=== PATIENT | male | born 1940 | race Caucasian/White ===

== ENCOUNTER 2017-03-10 15:53 | Inpatient (IN) ==
[2017-03-10] MEDS ORDERED: ASPIRIN 325 MG TABLET PO STA (16:10)
[2017-03-10] MEDS ORDERED: METOPROLOL TARTRATE 5 MG/5 ML VIAL IV STA (16:10)
[2017-03-10] MEDS ORDERED: NITROGLYCERIN 2% OINT 1 INCH/GM PACK TOP STA (16:10)
--- NOTE | 2017-03-10 16:13 | EKG Report ---
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
[2017-03-10] MEDS: NITROGLYCERIN SL 0.4 MG TABLET SL PRN ×2 (16:30→16:38)
[2017-03-10 16:41] LABS: Basophils # 0.1 10*3/uL (0.0-0.2); Basophils % 0.8 % (0.0-0.8); Eosinophils # 0.2 10*3/uL (0.0-0.87); Eosinophils % 3.2 % (0.00-10.9); Hematocrit 40.8 VOL% (42.0-52.0); Hemoglobin 14.1 GM/DL (14.0-18.0); Immature Granulocytes % 4.4 %; Immature Granulocytes Absolute 0.29 #; Lymphocytes # 2.1 10*3/uL (1.4-4.0); Lymphocytes % 31.2 % (21.2-54.2); Mean Corpuscular HGB Conc 34.6 GM/DL (32-36); Mean Corpuscular Hemoglobin 30 PG (27-34); Mean Corpuscular Volume 86.3 FL (87-102); Mean Platelet Volume 8.7 FL (9.6-12.0); Monocytes # 0.7 10*3/uL (0.11-0.8); Monocytes % 10.9 % (1.7-12.7); Neutrophils # 3.3 10*3/uL (1.4-7.4); Neutrophils % 49.5 % (38.7-73.9); Platelet Count 223 T/CUMM (130-400); Red Blood Count 4.73 MC/CUMM (3.8-5.5); Red Cell Distribution Width 13.8 % (9.3-17.3); White Blood Count 6.6 T/CUMM (4-12)
[2017-03-10] MEDS ORDERED: METOPROLOL TARTRATE 5 MG/5 ML VIAL IV ONE (16:55)
[2017-03-10] MEDS ORDERED: NITROGLYCERIN 2% OINT 1 INCH/GM PACK TOP ONE (16:55)
[2017-03-10] MEDS ORDERED: ASPIRIN 325 MG TABLET ONE (16:55)
--- NOTE | 2017-03-10 17:05 | EKG Report ---
Stationary ECG Study [facility] ER Test Date: 03/10/2017 5:03 PM Pat Name: REGAN ALARCON Department: Room: Gender: M Judge Clerk: : 1940 Requested by: Domingo Kraft Order Number: [id number] Reading MD: ALYX PINZON Intervals [place] Rate: 65 P: 26 MN: 180 QRS: -57 QRSD: 98 T: -24 QT: 397 QTc: 409 Interpretive Statements SINUS RHYTHM S1-S2-S3 PATTERN, CONSISTENT WITH PULMONARY DISEASE INCOMPLETE RIGHT BUNDLE BRANCH BLOCK LEFT ANTERIOR FASCICULAR BLOCK Electronically Signed On 03-10-17 17:07:11 CDT by ALYX PINZON [email or web address]
[2017-03-10 17:07] LABS: Calcium 8.5 MG/DL (8.5-10.1); Osmolality,Calculated 275.8 MOS/KG (273-304); Potassium 3.7 MMOL/L (3.5-5.1)
[2017-03-10] MEDS ORDERED: ENOXAPARIN 80 MG/0.8 ML SYRINGE SUBCUT STA (17:18)
--- NOTE | 2017-03-10 17:25 | XRay Report ---
History: Chest pain Date: 03/10/2017 Study: Chest x-ray AP portable Comparison exam: January 06, 2017 The cardiomediastinal silhouette and pulmonary vasculature are unremarkable. The lungs and pleural spaces are generally clear. There is mild thoracic spondylosis. Impression: No acute cardiopulmonary process. No significant interval change PROCEDURE INTERPRETED AT [facility] Final Report Signed by: Dr. Isabelle Jimenez
[2017-03-10] MEDS ORDERED: POTASSIUM CHLORIDE 20 MEQ TABLET PO PRN (17:35)
[2017-03-10] MEDS ORDERED: MORPHINE 2 MG/1 ML SYRINGE IV PRN (17:35)
[2017-03-10] MEDS ORDERED: MAGNESIUM SULF RIDER 2 GM in PREMIX 1 EACH IV PRN (17:35)
[2017-03-10] MEDS ORDERED: ONDANSETRON 4 MG/2 ML VIAL IV PRN (17:35)
--- NOTE | 2017-03-10 17:35 | Emergency Department Note ---
Riaz Head Brittany, am scribing for, and in the presence of, Cristhian Hernandez MD 16:13. David Head Doug C, MD, personally performed the services described in this documentation, ascribed by Anai Mello in my presence, and it is both accurate and complete [id number] . Arrival - Arrival Chief Complaint: Chest Pain Stated Complaint: CHEST PAINS ED Nursing Triage Note: C/o dull, left side chest pain-onset yesterday. Denies SOB, N/V, or diaphoresis. Patient had stent placed on 01/07/17. Mode of Arrival: Wheelchair Limitations: No Limitations Source: Patient, RN Notes Reviewed Time Seen by Provider: 03/10/17 16:10 - History of Present Illness HPI Narrative: Patient comes to emergency room complaining of substernal chest pain that began yesterday around noon. Patient states the pain is substernal heaviness and he has no associated nausea, vomiting, shortness of breath or diaphoresis. Patient states she has not noted any radiation of this discomfort. Patient has a history of coronary artery disease and had stenting performed in December of this year. Patient states his pain is a little different in location from his prior episode but the character of the pain is the same. He did not take a nitroglycerin at home for his discomfort. Patient states he has not stopped his blood thinner. Onset (ago): day(s) (1) Consistency: constant Severity: moderate Severity scale (1-10): 6 Quality: dull (pt describes this pain as a dull pressure) Allergies/Adverse Reactions: Allergies Allergy/AdvReac Type Severity Reaction Status Date / Time No Known Allergies Allergy Verified 01/06/17 20:02 Home Medications: Home Medications Medication Instructions Recorded Confirmed Type Terazosin [Hytrin] 5 mg PO BEDTIME 04/28/15 03/10/17 History Aspirin EC Tab 1 tablet PO QAM 05/15/15 03/10/17 History Cilostazol [Pletal] 50 mg PO BID #60 tablet 01/10/17 03/10/17 Rx Ticagrelor [Brilinta] 90 mg PO BID #60 tablet 01/10/17 03/10/17 Rx Carvedilol [Coreg] 3.25 mg PO BID 03/10/17 03/10/17 History Rosuvastatin [Crestor] 10 mg PO BEDTIME 03/10/17 03/10/17 History amLODIPine [Norvasc] 5 mg PO DAILY 03/10/17 03/10/17 History Review of System - Review of System 12 point system: reviewed and no additional remarkable complaints except as stated - Review of System Constitutional: Absent: chills, diaphoresis, fever Eyes: Absent: vision change Head/Ears/Nose/Throat: Absent: nasal drainage, sore throat Respiratory: Absent: respiratory distress Cardiovascular: Present: chest pain Gastrointestinal: Absent: abdominal pain, nausea, vomiting, diarrhea, constipation Genitourinary male: Absent: urgency, dysuria, frequency Musculoskeletal: Absent: arm pain, back pain, leg pain, neck pain Skin: Absent: rash Neurological: Absent: headache Psychiatric: Absent: anxiety, depression Hematological/Lymphatic: Absent: easy bleeding, easy bruising Medical,Surgical,& Family Hx - Medical History Cardio: History of: CAD, Hypertension Psychological: Comment Only: Anxiety Disorders (takes xanax prn for anxiety) HEENT: History of: Eye Problem (cataract surgery detached retina) Endocrine: History of: Diabetes Mellitus (IDDM), Diabetes Mellitus (NIDDM), Dyslipidemia No history of: Thyroid Disorder, Endocrine Cancer, Endocrine Problems Hematology: No history of: Blood Transfusion Reaction (no had a blood transfusion) Other: No history of: Anesthesia Reactions - Surgical History Cardiac Surgeries: Sugical HX of: Cardiac Catheterization Patient Denies: Femoral-Popliteal Bypass Graft, Cardiac Surgery, Carotid Endarterectomy, Internal Defibrillator, Vascular Access Devices Thoracic Surgeries: Patient denies;: Organ Transplant HEENT Surgeries: Surgical HX of: Eye Surgery Patient denies: Carotid Endarterectomy Abdominal Surgeries: Patient denies: Abdominal Surgery, Splenectomy - Family History Family History: Reports;: Family Cancer (mother (colon cancr)), Family Diabetes (mother), Family Hypertension (mother) - Social History Smoking Status: Former smoker Frequency of Alcohol Use: None Type of Drug Use: None Exam Vital Signs: Vital Signs Temperature 97.8 F 03/10/17 17:24 Pulse Rate 74 03/10/17 17:24 Respiratory Rate 18 03/10/17 17:24 Blood Pressure 162/82 03/10/17 17:24 O2 Sat by Pulse Oximetry 97 03/10/17 17:00 - General General appearance: alert, in no apparent distress - Head Head exam: Present: normocephalic - Eye Eye exam: Present: PERRL, EOMI - ENT ENT exam: Present: normal exam, normal oropharynx - Neck Neck exam: Present: normal inspection, full ROM, trachea midline - Chest Chest inspection: Present: normal inspection, symmetric chest wall rise - Respiratory Respiratory exam: Present: normal lung sounds bilaterally - Cardiovascular Cardiovascular exam: Present: regular rate, normal rhythm, normal heart sounds - Abdominal Exam Abdominal exam: Present: soft, normal bowel sounds - Extremities Exam Extremities exam: Present: normal inspection - Back Exam Back exam: Present: normal inspection - Neurological Exam Neurological exam: Present: alert, oriented X3, CN II-XII intact. Absent: motor sensory deficit - Psychiatric Psychiatric exam: Present: normal affect - Skin Skin exam: Present: warm, dry Course Course Narrative: Patient's clinical presentation, history, laboratory and radiographic findings as well as left cardiographic findings were discussed with Dr. Singh. The patient will be admitted to telemetry to his services. Patient's initial cardiac isoenzymes were negative. Results - Labs CBC & BMP: 03/10/17 16:37 03/10/17 16:37 Lab Results: I have reviewed the patients labs Labs: Laboratory Tests 03/10/17 16:37 WBC 6.6 RBC 4.73 Hgb 14.1 Hct 40.8 L MCV 86.3 L MCH 30 MCHC 34.6 RDW 13.8 Plt Count 223 MPV 8.7 L Neut % (Auto) 49.5 Lymph % (Auto) 31.2 [place] % (Auto) 10.9 Eos % (Auto) 3.2 Baso % (Auto) 0.8 Neut # (Auto) 3.3 Lymph # (Auto) 2.1 [place] # (Auto) 0.7 Eos # (Auto) 0.2 Baso # (Auto) 0.1 Immature Gran % 4.4 Nucleated RBC % 0.0 Immature Gran # 0.29 Nucleated RBCs # 0.00 Laboratory Tests 03/10/17 16:37 Sodium 137 Potassium 3.7 Chloride 104 Carbon Dioxide 26 Anion Gap 10.7 BUN 14 Creatinine 1.20 GFR Calculation 62 BUN/Creatinine Ratio 11.00 Glucose 138 H Calculated Osmolality 275.8 Calcium 8.5 - EKG EKG results: interpreted by ERMD, sinus rhythm (77 bpm), no acute changes - Impressions After patient's pain subsided repeat EKG revealed have inverted T waves in 3 and aVF. There is still no ST elevation or depression - Diagnostic Findings Procedure: Chest x-ray: report reviewed by me (Normal) Disposition Clinical Impression: Unstable angina Case discussed with: patient, patient's family Disposition: Still a Patient Condition: Guarded Time of Disposition: 17:35
--- NOTE | 2017-03-10 18:25 | Cardiology History & Physical ---
Assessment and Plan (1) Unstable angina Status: Acute Assessment and plan: 76-year-old male, with multivessel CAD, status post inferior STEMI 2 months ago , status post RCA/PL PCI. Hypertension, hyperlipidemia, type 2 diabetes mellitus. Admitted with inferior EKG changes, chest pain, so far, negative cardiac biomarkers, hemodynamically stable no chest pain severe for nitroglycerin. -The presentation is suspicious for ACS/UA. On his prior admission, after initial presentation, he developed STEMI, despite antiplatelets/ anticoagulation. Presentation would be a bit late for Roshni's. -We will observe him closely. -Continue aspirin, Brilinta, full anticoagulation with Lovenox. -Nitroglycerin for chest pain. -Beta-olivia, statin. -He is currently pain-free. N.p.o. after midnight. If there is evidence of myocardial injury, we will need to proceed with catheterization Current Visit: Yes (2) Suspected sleep apnea Status: Acute Current Visit: No (3) TIA (transient ischemic attack) Status: Acute Current Visit: No (4) Hypertension Status: Chronic Current Visit: No (5) Overweight Status: Chronic Current Visit: No History of Present Illness Chief complaint: CP History of present illness: Mr. Guevara is a 76 year old male, pt of dr. Connolly. H/o HTN, HL, T2DM. On 12/2016, he was admitted with CP, which in a few hours transformed into an inferior STEMI and he underwent urgent LHC: Subtotal stenosis of the proximal right coronary artery-99%, VLADISLAV grade II flow 90% narrowing of the proximal PDA of the right coronary 80% narrowing of the proximal portion of the diagonal of the LAD 95% narrowing of a small post lateral branch of the circumflex-less than 2 mm in diameter Status post successful stenting of the proximal right [id number] stent, 3.0 x 18 Zions Alpine, predilated with a 2.5 x 15 mm NC apex Status post successful angioplasty of the PDA of the right coronary-same vessel- 2.0 x 15 mm NC apex Normal global/regional left ventricular systolic function, LVEF greater than 55% Moderately severe elevation of LVEDP, 29 mmHg Post catheterization patient was transferred to the CCU in stable condition. He did well post catheterization with the exception of having an episode left shoulder pain while on telemetry yesterday which he was concerned felt similar to S/S he experienced prior to stent placement. Twelve-lead EKG obtained and it is without acute ST segment change or other signs of ischemia. At that time, it was decided to observe patient on telemetry for 1 more day. Cardiac markers were ordered at that time. These were trending down as expected. Imdur was added to his medication regimen and he was encouraged to ambulate in the hallway as tolerated to assess for recurrent left shoulder pain or other discomfort upon exertion. The pain then resolved and he was discharged. He followed up with Dr. Connolly, taking his medications as prescribed. Earlier today, he developed sudden onset left-sided sharp chest pain/shoulder, without radiation, started at rest and was persistent. He did not find anything that made it better, however, resolved with nitroglycerin in the emergency room. This pain was not similar to his pain before the NE, more similar to one he experienced after it. Initial EKG was unremarkable, repeat EKG showed inferior T-wave changes. Initial troponin is negative. He is currently chest pain-free. He did not have any shortness of breath leg swelling GI discomfort black or bloody stools. He is currently feeling fine. Blood pressure normal Home Medications Medication Instructions Recorded Confirmed Type Terazosin [Hytrin] 5 mg PO BEDTIME 04/28/15 03/10/17 History Aspirin EC Tab 1 tablet PO QAM 05/15/15 03/10/17 History Cilostazol [Pletal] 50 mg PO BID #60 tablet 01/10/17 03/10/17 Rx Ticagrelor [Brilinta] 90 mg PO BID #60 tablet 01/10/17 03/10/17 Rx Carvedilol [Coreg] 3.25 mg PO BID 03/10/17 03/10/17 History Rosuvastatin [Crestor] 10 mg PO BEDTIME 03/10/17 03/10/17 History amLODIPine [Norvasc] 5 mg PO DAILY 03/10/17 03/10/17 History Allergies Allergy/AdvReac Type Severity Reaction Status Date / Time No Known Allergies Allergy Verified 01/06/17 20:02 12 point system: reviewed and no additional remarkable complaints except as stated Medical,Surgical,& Family Hx - Medical History Cardio: History of: CAD, Hypertension Psychological: Comment Only: Anxiety Disorders (takes xanax prn for anxiety) HEENT: History of: Eye Problem (cataract surgery detached retina) Endocrine: History of: Diabetes Mellitus (IDDM), Diabetes Mellitus (NIDDM), Dyslipidemia No history of: Thyroid Disorder, Endocrine Cancer, Endocrine Problems Hematology: No history of: Blood Transfusion Reaction (no had a blood transfusion) Other: No history of: Anesthesia Reactions - Surgical History Cardiac Surgeries: Sugical HX of: Cardiac Catheterization Patient Denies: Femoral-Popliteal Bypass Graft, Cardiac Surgery, Carotid Endarterectomy, Internal Defibrillator, Vascular Access Devices Thoracic Surgeries: Patient denies;: Organ Transplant HEENT Surgeries: Surgical HX of: Eye Surgery Patient denies: Carotid Endarterectomy Abdominal Surgeries: Patient denies: Abdominal Surgery, Splenectomy - Family History Family History: Reports;: Family Cancer (mother (colon cancr)), Family Diabetes (mother), Family Hypertension (mother) - Social History Smoking Status: Former smoker Frequency of Alcohol Use: None Type of Drug Use: None Cardiology Physical Exam - Constitutional Vitals: Vital Signs Temp Pulse Resp BP Pulse Ox 97.8 F 64 20 118/69 97 03/10/17 17:24 03/10/17 18:00 03/10/17 18:00 03/10/17 18:00 03/10/17 18:00 Intake and Output 03/10/17 03/10/17 03/10/17 07:59 15:59 23:59 Other: Weight 77.111 kg Patient Weight 03/10/17 23:59 Weight 77.111 kg General appearance: normal weight, over weight - Head Head exam: Present: normal inspection - Eye Eye exam: Absent: conjunctival injection Pupils: Absent: dilated - ENT ENT exam: Present: normal exam - Neck Neck exam: Present: normal inspection - Respiratory Respiratory exam: Present: clear to auscultation bilaterally. Absent: chest wall tenderness, prolonged expiratory phase - Cardiovascular Cardiovascular exam: Present: regular rate and rhythm - GI/Abdominal GI/Abdominal exam: Present: normal bowel sounds - Extremities Exam Extremities exam: Present: normal inspection, normal capillary refill. Absent: edema - Back Exam Back exam: Present: normal inspection - Neurological Exam Neurological exam: Present: alert, oriented X3 - Psychiatric Psychiatric exam: Present: normal affect, normal mood - Skin Skin exam: Present: normal color, warm. Absent: cyanosis Result/EKG - Labs CBC & BMP: 03/10/17 16:37 03/10/17 16:37 Lab Results: I have reviewed the past 24 hour labs Labs: Laboratory Results - last 24 hr 03/10/17 03/10/17 03/10/17 16:37 16:37 16:37 WBC 6.6 RBC 4.73 Hgb 14.1 Hct 40.8 L MCV 86.3 L MCH 30 MCHC 34.6 RDW 13.8 Plt Count 223 MPV 8.7 L Neut % (Auto) 49.5 Lymph % (Auto) 31.2 [place] % (Auto) 10.9 Eos % (Auto) 3.2 Baso % (Auto) 0.8 Neut # (Auto) 3.3 Lymph # (Auto) 2.1 [place] # (Auto) 0.7 Eos # (Auto) 0.2 Baso # (Auto) 0.1 Immature Gran % 4.4 Nucleated RBC % 0.0 Immature Gran # 0.29 Nucleated RBCs # 0.00 Sodium 137 Potassium 3.7 Chloride 104 Carbon Dioxide 26 Anion Gap 10.7 BUN 14 Creatinine 1.20 GFR Calculation 62 BUN/Creatinine Ratio 11.00 Glucose 138 H Calculated Osmolality 275.8 Calcium 8.5 Troponin I < 0.015 - EKG EKG results: interpreted by me
[2017-03-10] MEDS: ROSUVASTATIN 20 MG TABLET PO SCH (20:52)
[2017-03-10] MEDS: CARVEDILOL 6.25 MG TABLET PO SCH (20:52)
[2017-03-10] MEDS: TICAGRELOR 90 MG TABLET PO SCH (20:52)
[2017-03-10] MEDS: SODIUM CHLORIDE 0.45% 1,000 ML IV SCH (20:52)
[2017-03-10] MEDS: CILOSTAZOL 50 MG TABLET PO SCH (20:52)
[2017-03-10] MEDS: TERAZOSIN 5 MG CAPSULE PO SCH (20:52)
[2017-03-10] MEDS ORDERED: ZALEPLON 5 MG CAPSULE PO PRN (21:00)
[2017-03-11 06:37] LABS: Calcium 8.4 MG/DL (8.5-10.1); Osmolality,Calculated 275.5 MOS/KG (273-304); Potassium 4.5 MMOL/L (3.5-5.1)
[2017-03-11 06:54] LABS: Risk Ratio 2.12; VLDL CHOLESTEROL 19.6 MG/DL
--- NOTE | 2017-03-11 07:10 | EKG Report ---
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
--- NOTE | 2017-03-11 07:11 | EKG Report ---
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
[2017-03-11] MEDS ORDERED: ENOXAPARIN 80 MG/0.8 ML SYRINGE SUBCUT SCH (09:00)
[2017-03-11] MEDS ORDERED: ASPIRIN EC 325 MG TABLET PO SCH (09:00)
[2017-03-11] MEDS: SODIUM CHLORIDE 0.45% 1,000 ML IV SCH ×2 (09:05→21:25)
[2017-03-11] MEDS: ASPIRIN EC 81 MG TABLET PO SCH (09:06)
[2017-03-11] MEDS: CILOSTAZOL 50 MG TABLET PO SCH ×2 (09:06→21:23)
[2017-03-11] MEDS: CARVEDILOL 6.25 MG TABLET PO SCH ×2 (09:06→21:23)
[2017-03-11] MEDS: TICAGRELOR 90 MG TABLET PO SCH ×2 (09:06→21:23)
[2017-03-11] MEDS: amLODIPine 5 MG TABLET PO SCH (09:06)
[2017-03-11] MEDS: PANTOPRAZOLE 40 MG TABLET PO SCH (09:06)
[2017-03-11] MEDS: NITROGLYCERIN SL 0.4 MG TABLET SL PRN ×3 (09:07→09:29)
--- NOTE | 2017-03-11 09:08 | EKG Report ---
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
[2017-03-11] MEDS ORDERED: ALUM/MAG/SIMETH/LIDO VISC 1:1 30 ML BOTTLE PO ONE (09:15)
--- NOTE | 2017-03-11 09:36 | Cardiology Progress Note ---
<Bella Rees Konstantin - Last Filed: 03/11/17 09:25> Assessment and Plan - Time spent with patient Time spent with patient: Less than 30 minutes (1) Unstable angina Status: Acute Assessment and plan: See plan of care listed below Current Visit: Yes (2) CAD (coronary artery disease) Status: Chronic Assessment and plan: See plan of care listed below Current Visit: Yes (3) Hyperlipidemia Status: Chronic Assessment and plan: See plan of care listed below Current Visit: Yes (4) Hypertension Status: Chronic Assessment and plan: See plan of care listed below Current Visit: No (5) Suspected sleep apnea Status: Chronic Assessment and plan: See plan of care listed below Current Visit: No Cardiology - PN: Subj Interval history: 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 SOLO Mr. Guevara is a 76 year old male with a history of multivessel CAD , status post inferior STEMI 2 months ago, status post RCA/PL PCI. He also has a history of hypertension, hyperlipidemia. He presented to the hospital with complaints of chest pain, suspicious for ACS/UA. On initial presentation, he described pain of sudden onset left-sided sharp chest pain without radiation, started at rest and was persistent. It resolved with nitroglycerin in the emergency room. This pain was not similar to his pain before the NM, more similar to one he experienced after it. He was also noted to have inferior EKG changes. He has had 3 sets of negative cardiac biomarkers. He has been hemodynamically stable and has had no pain since admission until this morning. I was notified approximately 15-20 minutes ago of Mr. Guevara developing chest pain. Thus far, he's had 2 sublingual nitroglycerin and his pain has improved. An EKG was performed and is grossly unchanged from yesterday's. We have continued his aspirin, brilinta, and full anticoagulation with Lovenox. He describes this pain as being a "dull ache" in his left chest. ASSESSMENT/PLAN: 1. UNSTABLE ANGINA - On his prior admission after initial presentation, he developed STEMI despite antiplatelets/anticoagulation. Continue NTG for chest pain. Will further discuss with Dr. Mark and await his recommendations. 2. CAD - He is s/p stenting of the proximal RCA with 3.0 x 18mm Xience [place] MAXIMINO and s/p angioplasty of the PDA of the RCA with 2.0 x 15mm NC [employer] [place]. 3. HYPERTENSION - Has been well controlled but is currently hypertensive with chest pain. Improving with sublingual nitroglycerin. Will continue to monitor and adjust medications accordingly. 4. HYPERLIPIDEMIA - Continue lipid lowering agent. Triglycerides 98, cholesterol 89, LDL 36, HDL 42. 5. SUSPECTED SLEEP APNEA Dr. Mark to follow with further plan and addendum. Exam (Progress Note) - Constitutional Vitals: Period Temp Pulse Resp BP Sys/Juarez Pulse Ox Last 24 Hr 97.8 F-98.4 F 54-88 18-20 117-162/67-84 95-98 Exam: General: Present: Appears Well, No Apparent Distress. Pleasant and cooperative. Appears comfortable. HEENT: Present: PERRL, Normocephaly, atraumatic. Mucus Membranes Moist. No jaundice noted. Conjunctiva moist and clear, sclerae anicteric Neck: Present: Supple Neck, Midline Trachea, No Masses, No Bruit, No tenderness Cardiac: Present: Regular Rate and Rhythm, No Murmur Lungs: Present: Clear to auscultation bilaterally, no wheeze, rhonchi, rales. Neuro: Present: Awake, alert, and oriented x3. Moves all extremities well without hemiparesis or paralysis. Grossly Intact. Absent: Resting Tremor, Essential Tremor Abdomen: Present: Soft, Active Bowel Sounds, No Masses, Non-Tender, nondistended. No abdominal bruit or thrill noted. Skin: Present: Clear. Absent: Rash, No skin breakdown. Back: Normal inspection, no vertebral tenderness. Musculoskeletal: Present: No Fluid Collection, No Pain, Normal Range of Motion Extremities: Present: Normal Gait, No Clubbing, No Cyanosis, Upper Extr. Pulses 2+, Lower Extr. Pulses 2+, No edema. Capillary refill less than 3 seconds. Result/EKG - Labs CBC & BMP: 03/10/17 16:37 03/11/17 05:29 Lab Results: I have reviewed the past 24 hour labs Labs: Laboratory Results - last 24 hr 03/10/17 03/10/17 03/10/17 16:37 16:37 16:37 WBC 6.6 RBC 4.73 Hgb 14.1 Hct 40.8 L MCV 86.3 L MCH 30 MCHC 34.6 RDW 13.8 Plt Count 223 MPV 8.7 L Neut % (Auto) 49.5 Lymph % (Auto) 31.2 [place] % (Auto) 10.9 Eos % (Auto) 3.2 Baso % (Auto) 0.8 Neut # (Auto) 3.3 Lymph # (Auto) 2.1 [place] # (Auto) 0.7 Eos # (Auto) 0.2 Baso # (Auto) 0.1 Immature Gran % 4.4 Nucleated RBC % 0.0 Immature Gran # 0.29 Nucleated RBCs # 0.00 Sodium 137 Potassium 3.7 Chloride 104 Carbon Dioxide 26 Anion Gap 10.7 BUN 14 Creatinine 1.20 GFR Calculation 62 BUN/Creatinine Ratio 11.00 Glucose 138 H Calculated Osmolality 275.8 Calcium 8.5 Troponin I < 0.015 Triglycerides Cholesterol LDL Cholesterol VLDL Cholesterol HDL Cholesterol Heart Disease Risk Ratio 03/10/17 03/10/17 03/11/17 19:48 22:12 05:29 WBC RBC Hgb Hct MCV MCH MCHC RDW Plt Count MPV Neut % (Auto) Lymph % (Auto) [place] % (Auto) Eos % (Auto) Baso % (Auto) Neut # (Auto) Lymph # (Auto) [place] # (Auto) Eos # (Auto) Baso # (Auto) Immature Gran % Nucleated RBC % Immature Gran # Nucleated RBCs # Sodium 139 Potassium 4.5 Chloride 106 Carbon Dioxide 27 Anion Gap 10.5 BUN 13 Creatinine 1.00 GFR Calculation 78 BUN/Creatinine Ratio 13.00 Glucose 82 Calculated Osmolality 275.5 Calcium 8.4 L Troponin I < 0.015 < 0.015 Triglycerides Cholesterol LDL Cholesterol VLDL Cholesterol HDL Cholesterol Heart Disease Risk Ratio 03/11/17 05:29 WBC RBC Hgb Hct MCV MCH MCHC RDW Plt Count MPV Neut % (Auto) Lymph % (Auto) [place] % (Auto) Eos % (Auto) Baso % (Auto) Neut # (Auto) Lymph # (Auto) [place] # (Auto) Eos # (Auto) Baso # (Auto) Immature Gran % Nucleated RBC % Immature Gran # Nucleated RBCs # Sodium Potassium Chloride Carbon Dioxide Anion Gap BUN Creatinine GFR Calculation BUN/Creatinine Ratio Glucose Calculated Osmolality Calcium Troponin I Triglycerides 98 Cholesterol 89 LDL Cholesterol 36.0 VLDL Cholesterol 19.6 HDL Cholesterol 42 Heart Disease Risk Ratio 2.12 - EKG EKG results: interpreted by me <Tiff Mark - Last Filed: 03/11/17 10:00> Assessment and Plan - Time spent with patient Time spent with patient: Greater than 30 minutes (Chart review examination film review documentation and orders) (1) Hypertension Status: Chronic Assessment and plan: Patient blood pressure is currently controlled. Current Visit: No Qualifiers: Hypertension type: essential hypertension Qualified Code(s): I10 - Essential (primary) hypertension (2) Unstable angina Status: Acute Assessment and plan: This chest discomfort is not clear. Certainly it may represent unstable angina he has reasons for unstable angina as described above. His pain did respond to nitroglycerin he has 2 sets of negative cardiac biomarkers and no new changes on his ECG. He certainly needs to reevaluation with left heart cath and possible PCI given his recent stent however the small vessel disease is likely best treated medically in both the LAD, diagonal and obtuse marginal.. He diagnosed clearly not amenable to PCI in the distal obtuse marginal certainly may be. All of the disease that was left at the time of his stenting small vessel disease most likely medical therapy Current Visit: Yes (3) CAD (coronary artery disease) Status: Chronic Assessment and plan: Diffuse small vessel disease as described above Current Visit: Yes (4) Hyperlipidemia Status: Chronic Current Visit: Yes Qualifiers: Hyperlipidemia type: mixed hyperlipidemia Qualified Code(s): E78.2 - Mixed hyperlipidemia Cardiology - PN: Subj Interval history: Mr. Guevara is a 68-year-old gentleman on a went PCI of the RCA by Dr. Ji in December. 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 Blu solo. The patient states that since he had his stent he has not "felt right". He an 81 mg of aspirin. The patient was found at that time to have high-grade stenosis in the mid RCA which was the culprit vessel and stented. He also had a very small diagonal had VLADISLAV I flow and high-grade ostial stenosis in a distal obtuse marginal in a codominant vessel with high-grade stenosis. There is also diffuse small vessel disease in the distal LAD. There was also moderate disease in the mid to distal left circumflex. The diagonal was extremely small less than 1 mm vessel. The distal obtuse marginal also was a very small vessel. The patient does not have ST elevation on his EKG at this time is had 2 cardiac biomarkers are negative. He states his pain has come and gone but right now he says it is a 1/10 and it is "just there." He states that the time of this to me he had left shoulder pain. He did not experience nausea vomiting or diaphoresis the episode. I have reviewed his films I discussed and interviewed the patient and discussed with his is been examined. Given the proximity of recent PCI I feel that he needs left heart catheterization however at this time I do not think it is urgent. His pain is better his blood pressure initially was high is gotten better his pain is better. I will make adjustments to his medications. Must consider acute problems with his previously deployed stent which would change things however this very well may be very small disease on the left system. I will escalate his medical therapy Exam (Progress Note) - Constitutional Vitals: Period Temp Pulse Resp BP Sys/Juarez Pulse Ox Last 24 Hr 97.8 F-98.4 F 54-88 18-20 117-162/67-84 95-98 General appearance: normal weight, other (He is currently not in any distress) - Head Head exam: Present: normal inspection - Eye Eye exam: Present: EOMI Pupils: Present: TEA - ENT ENT exam: Present: normal exam - Neck Neck exam: Present: normal inspection - Respiratory Respiratory exam: Present: clear to auscultation bilaterally - Cardiovascular Cardiovascular exam: Present: regular rate and rhythm (No gallop), other (His chest discomfort is partially reproducible with palpation.) - GI/Abdominal GI/Abdominal exam: Present: normal bowel sounds - Extremities Exam Extremities exam: Present: other (Spacing the tip of the finger on the left hand 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) - Back Exam Back exam: Present: normal inspection - Neurological Exam Neurological exam: Present: alert, oriented X3 - Psychiatric Psychiatric exam: Present: normal affect, normal mood - Skin Skin exam: Present: normal color, warm, dry Result/EKG - Labs CBC & BMP: 03/10/17 16:37 03/11/17 05:29 Labs: Laboratory Results - last 24 hr 03/10/17 03/10/17 03/10/17 16:37 16:37 16:37 WBC 6.6 RBC 4.73 Hgb 14.1 Hct 40.8 L MCV 86.3 L MCH 30 MCHC 34.6 RDW 13.8 Plt Count 223 MPV 8.7 L Neut % (Auto) 49.5 Lymph % (Auto) 31.2 [place] % (Auto) 10.9 Eos % (Auto) 3.2 Baso % (Auto) 0.8 Neut # (Auto) 3.3 Lymph # (Auto) 2.1 [place] # (Auto) 0.7 Eos # (Auto) 0.2 Baso # (Auto) 0.1 Immature Gran % 4.4 Nucleated RBC % 0.0 Immature Gran # 0.29 Nucleated RBCs # 0.00 Sodium 137 Potassium 3.7 Chloride 104 Carbon Dioxide 26 Anion Gap 10.7 BUN 14 Creatinine 1.20 GFR Calculation 62 BUN/Creatinine Ratio 11.00 Glucose 138 H Calculated Osmolality 275.8 Calcium 8.5 Troponin I < 0.015 Triglycerides Cholesterol LDL Cholesterol VLDL Cholesterol HDL Cholesterol Heart Disease Risk Ratio 03/10/17 03/10/17 03/11/17 19:48 22:12 05:29 WBC RBC Hgb Hct MCV MCH MCHC RDW Plt Count MPV Neut % (Auto) Lymph % (Auto) [place] % (Auto) Eos % (Auto) Baso % (Auto) Neut # (Auto) Lymph # (Auto) [place] # (Auto) Eos # (Auto) Baso # (Auto) Immature Gran % Nucleated RBC % Immature Gran # Nucleated RBCs # Sodium 139 Potassium 4.5 Chloride 106 Carbon Dioxide 27 Anion Gap 10.5 BUN 13 Creatinine 1.00 GFR Calculation 78 BUN/Creatinine Ratio 13.00 Glucose 82 Calculated Osmolality 275.5 Calcium 8.4 L Troponin I < 0.015 < 0.015 Triglycerides Cholesterol LDL Cholesterol VLDL Cholesterol HDL Cholesterol Heart Disease Risk Ratio 03/11/17 05:29 WBC RBC Hgb Hct MCV MCH MCHC RDW Plt Count MPV Neut % (Auto) Lymph % (Auto) [place] % (Auto) Eos % (Auto) Baso % (Auto) Neut # (Auto) Lymph # (Auto) [place] # (Auto) Eos # (Auto) Baso # (Auto) Immature Gran % Nucleated RBC % Immature Gran # Nucleated RBCs # Sodium Potassium Chloride Carbon Dioxide Anion Gap BUN Creatinine GFR Calculation BUN/Creatinine Ratio Glucose Calculated Osmolality Calcium Troponin I Triglycerides 98 Cholesterol 89 LDL Cholesterol 36.0 VLDL Cholesterol 19.6 HDL Cholesterol 42 Heart Disease Risk Ratio 2.12 - EKG EKG results: interpreted by me (Sinus rhythm at 61 bpm with T-wave inversion 3 and aVF. Has a leftward axis. Pulmonary disease pattern with incomplete right bundle branch block.)
[2017-03-11 10:01] LABS: Troponin I Only < 0.015 NG/ML (0.00-0.045)
[2017-03-11] MEDS: ISOSORBIDE MONONITRATE 30 MG TABLET PO SCH (10:36)
[2017-03-11] MEDS: TERAZOSIN 5 MG CAPSULE PO SCH (21:22)
[2017-03-11] MEDS: ROSUVASTATIN 20 MG TABLET PO SCH (21:23)
[2017-03-12 05:37] LABS: Basophils # 0.1 10*3/uL (0.0-0.2); Basophils % 0.9 % (0.0-0.8); Eosinophils # 0.3 10*3/uL (0.0-0.87); Eosinophils % 3.6 % (0.00-10.9); Hematocrit 39.5 VOL% (42.0-52.0); Hemoglobin 13.3 GM/DL (14.0-18.0); Immature Granulocytes % 2.4 %; Immature Granulocytes Absolute 0.17 #; Lymphocytes # 2.2 10*3/uL (1.4-4.0); Mean Corpuscular HGB Conc 33.7 GM/DL (32-36); Mean Corpuscular Hemoglobin 29 PG (27-34); Monocytes # 0.7 10*3/uL (0.11-0.8); Monocytes % 10.5 % (1.7-12.7); Neutrophils # 3.6 10*3/uL (1.4-7.4); Neutrophils % 51.6 % (38.7-73.9); Platelet Count 213 T/CUMM (130-400); Red Blood Count 4.54 MC/CUMM (3.8-5.5); Red Cell Distribution Width 13.7 % (9.3-17.3); White Blood Count 6.9 T/CUMM (4-12)
[2017-03-12 06:00] LABS: Calcium 8.4 MG/DL (8.5-10.1); Magnesium 2.3 MG/DL (1.8-2.4); Osmolality,Calculated 273.8 MOS/KG (273-304); Potassium 4.5 MMOL/L (3.5-5.1)
--- NOTE | 2017-03-12 06:47 | Cardiology Progress Note ---
Assessment and Plan (1) Hypertension Status: Chronic Assessment and plan: Patient blood pressure is currently controlled. Current Visit: No Qualifiers: Hypertension type: essential hypertension Qualified Code(s): I10 - Essential (primary) hypertension (2) Unstable angina Status: Acute Assessment and plan: This chest discomfort is not clear. Certainly it may represent unstable angina he has reasons for unstable angina as described above. His pain did respond to nitroglycerin he has 3 sets of negative cardiac biomarkers and no new changes on his ECG. He certainly needs to reevaluation with left heart cath and possible PCI given his recent stent however the small vessel disease is likely best treated medically in both the LAD, diagonal and obtuse marginal. I discussed with the patient again this morning. Will await heart cath. He is agreeable to proceed I answered all the questions he and his have. If no PCI today will anticipate discharge later. PCI will anticipate discharge tomorrow. Current Visit: Yes (3) CAD (coronary artery disease) Status: Chronic Assessment and plan: Diffuse small vessel disease as described above Current Visit: Yes (4) Hyperlipidemia Status: Chronic Current Visit: Yes Qualifiers: Hyperlipidemia type: mixed hyperlipidemia Qualified Code(s): E78.2 - Mixed hyperlipidemia Cardiology - PN: Subj Interval history: Mr. Guevara states that after he became pain-free yesterday when I saw him with nitroglycerin and started Philippe has not had any additional discomfort. I told him about the cath and he is ready to proceed. Patient scheduled for left heart possible by Dr. Stewart this morning. Exam (Progress Note) - Constitutional Vitals: Period Temp Pulse Resp BP Sys/Juarez Pulse Ox Last 24 Hr 97.9 F-98.7 F 64-72 16-20 130-139/73-84 94-98 General appearance: normal weight - Head Head exam: Present: normal inspection - Eye Eye exam: Present: EOMI Pupils: Present: TEA - Neck Neck exam: Present: normal inspection - Respiratory Respiratory exam: Present: clear to auscultation bilaterally - Cardiovascular Cardiovascular exam: Present: regular rate and rhythm - GI/Abdominal GI/Abdominal exam: Present: normal bowel sounds - Extremities Exam Extremities exam: Present: normal inspection - Back Exam Back exam: Present: normal inspection - Neurological Exam Neurological exam: Present: alert, oriented X3 - Psychiatric Psychiatric exam: Present: normal affect, normal mood - Skin Skin exam: Present: normal color, warm, dry Result/EKG - Labs CBC & BMP: 03/12/17 04:54 03/12/17 04:54 Labs: Laboratory Results - last 24 hr 03/11/17 03/11/17 03/12/17 05:29 09:14 04:54 WBC 6.9 RBC 4.54 Hgb 13.3 L Hct 39.5 L MCV 87.0 MCH 29 MCHC 33.7 RDW 13.7 Plt Count 213 MPV 9.0 L Neut % (Auto) 51.6 Lymph % (Auto) 31.0 [place] % (Auto) 10.5 Eos % (Auto) 3.6 Baso % (Auto) 0.9 H Neut # (Auto) 3.6 Lymph # (Auto) 2.2 [place] # (Auto) 0.7 Eos # (Auto) 0.3 Baso # (Auto) 0.1 Immature Gran % 2.4 Nucleated RBC % 0.0 Immature Gran # 0.17 Nucleated RBCs # 0.00 Sodium Potassium Chloride Carbon Dioxide Anion Gap BUN Creatinine GFR Calculation BUN/Creatinine Ratio Glucose Calculated Osmolality Calcium Magnesium Total Creatine Kinase 66 CK-MB (CK-2) 1.9 Troponin I < 0.015 Triglycerides 98 Cholesterol 89 LDL Cholesterol 36.0 VLDL Cholesterol 19.6 HDL Cholesterol 42 Heart Disease Risk Ratio 2.12 03/12/17 04:54 WBC RBC Hgb Hct MCV MCH MCHC RDW Plt Count MPV Neut % (Auto) Lymph % (Auto) [place] % (Auto) Eos % (Auto) Baso % (Auto) Neut # (Auto) Lymph # (Auto) [place] # (Auto) Eos # (Auto) Baso # (Auto) Immature Gran % Nucleated RBC % Immature Gran # Nucleated RBCs # Sodium 137 Potassium 4.5 Chloride 104 Carbon Dioxide 25 Anion Gap 12.5 BUN 14 Creatinine 1.00 GFR Calculation 78 BUN/Creatinine Ratio 14.00 Glucose 92 Calculated Osmolality 273.8 Calcium 8.4 L Magnesium 2.3 Total Creatine Kinase CK-MB (CK-2) Troponin I Triglycerides Cholesterol LDL Cholesterol VLDL Cholesterol HDL Cholesterol Heart Disease Risk Ratio
[2017-03-12] MEDS ORDERED: DIAZEPAM 5 MG TABLET PO ONE (08:00)
[2017-03-12] MEDS ORDERED: diphenhydrAMINE CAP 25 MG CAPSULE PO ONE (08:00)
[2017-03-12] MEDS: ISOSORBIDE MONONITRATE 30 MG TABLET PO SCH (08:26)
[2017-03-12] MEDS: TICAGRELOR 90 MG TABLET PO SCH ×2 (08:26→20:27)
[2017-03-12] MEDS: CARVEDILOL 6.25 MG TABLET PO SCH ×2 (08:26→20:28)
[2017-03-12] MEDS: ASPIRIN EC 81 MG TABLET PO SCH (08:26)
[2017-03-12] MEDS: PANTOPRAZOLE 40 MG TABLET PO SCH (08:27)
[2017-03-12] MEDS: CILOSTAZOL 50 MG TABLET PO SCH ×2 (08:27→20:27)
[2017-03-12] MEDS: amLODIPine 5 MG TABLET PO SCH (08:27)
[2017-03-12] MEDS: SODIUM CHLORIDE 0.45% 1,000 ML IV SCH ×3 (08:33→22:32)
[2017-03-12] MEDS ORDERED: HEPARIN/NACL 0.9% 2 UNITS/ML 1,000 ML IV ONE (08:43)
[2017-03-12] MEDS ORDERED: VERAPAMIL 5 MG/2 ML VIAL ONE (08:43)
[2017-03-12] MEDS ORDERED: NITROGLYCERIN DRIP 50 MG/250 ML BOTTLE IV ONE (08:43)
[2017-03-12] MEDS ORDERED: LIDOCAINE 1% 20 ML VIAL ONE (08:43)
[2017-03-12] MEDS ORDERED: MIDAZOLAM 2 MG/2 ML VIAL ONE (08:53)
[2017-03-12] MEDS ORDERED: HYDROmorphone 2 MG/1 ML VIAL ONE (08:53)
[2017-03-12] MEDS ORDERED: ENOXAPARIN 60 MG/0.6 ML SYRINGE ONE (09:08)
[2017-03-12] MEDS ORDERED: ACETAMINOPHEN/CODEINE 300-30 MG TABLET PO PRN (09:31)
[2017-03-12] MEDS ORDERED: ACETAMINOPHEN 325 MG TABLET PO PRN (09:31)
--- NOTE | 2017-03-12 09:43 | Cardiac Catheterization ---
Date of Procedure:: 03/12/17 Procedure: CLINICAL HISTORY: Please see the history and physical. The patient had recent stent placement in the right coronary artery with balloon angioplasty more distally in the right coronary. He came in with recurrent chest pain/anginal symptoms and is undergoing cardiac catheterization for definitive coronary artery assessment possible revascularization. PROCEDURES PERFORMED: 1. Right radial percutaneous arteriotomy 2. Left heart catheterization 3. Resting hemodynamics 4. Left ventriculography. 5. Coronary arteriography 6. Hemoband placement DESCRIPTION OF PROCEDURE: After obtaining informed consent, the patient was taken to the laborer rags, prepped and draped in the usual sterile manner. We accessed the right radial artery using modified Seldinger technique in the usual fashion. We placed a 6-[place] slim sheath without difficulty. We then used a Tig catheter to engage the right coronary and left main coronary arteries to perform angiography in multiple orthogonal views. There were no problems or complications during the procedure. We then used an angled pigtail catheter to perform a left heart catheterization with left ventriculogram and pressure measurement in the usual fashion. After removing the catheter, we placed a HemoBand and removed the sheath without difficulty. There were no problems during the case. HEMODYNAMICS: Please see the accompanying data sheet. Left ventricular end- diastolic pressure is approximately 20 mmHg. CORONARIES: The left main coronary artery is a moderate-sized vessel which bifurcates into the left anterior descending left circumflex coronary arteries. The left main coronary artery is angiographically free of significant obstructive disease. There is actually also a trivial ramus which is less than 1 mm in diameter. The left circumflex coronary artery is a moderate-sized vessel which gives off a moderate-sized bifurcating first obtuse marginal and a moderate-sized branching posterolateral. There are mild luminal irregularities in the circumflex system. The middle branch of the posterior lateral appears to have significant disease but this is very distal and the vessel is quite small at this location so I think I would manage this medically. The left anterior descending is a moderate-sized vessel which gives off a moderate first diagonal branch and a small second diagonal branch. The second diagonal branch is subtotal proximally with slow distal filling. This is unchanged from the previous catheterization. This vessel appears to be approximately 1-1.5 mm in diameter. The left anterior descending coronary artery has diffuse mild luminal irregularities, and has an area of stenosis in the distal vessel near the apex that appears to be approximately 80% stenosed. The right coronary artery is a moderate-sized vessel which gives off the posterior descending artery and a posterolateral system. The previously placed stent in the mid right coronary artery is widely patent. The area of balloon angioplasty in the posterior descending artery also appears to be widely patent. There are mild luminal irregularities in the vessel but no focal high- grade disease. LEFT VENTRICULOGRAPHY: Left ventriculogram shows left ventricular ejection fraction of approximately 65% with normal regional wall motion. IMPRESSION: 1. The previously placed stent and area of balloon angioplasty in the right coronary artery are both widely patent. 2. The previously seen disease in the circumflex, diagonal, and distal left anterior descending coronary artery all remain stable. These vessels are generally very small and/or distal. At this time I think I would continue medical management. 3. Left ventricular systolic function is normal as described above. 4. Mildly elevated left ventricular end-diastolic pressure of approximately 20 mmHg. PLAN: The patient has several areas of significant stenosis and very small vessels or very distal locations. These areas have not changed significantly since the previous catheterization. The site of the previous interventions are widely patent. The patient has preserved left ventricular systolic function. I think at this time I would continue medical management. If medical management fails, intervention in 1 of these small/distal branches could be considered in the future. Anesthesia: minimal conscious sedation Surgeon / Physician: Mj Stewart Estimated blood loss: minimal Condition: stable Disposition: floor - Medications / Follow-up
--- NOTE | 2017-03-12 14:31 | Event Note ---
Patient's arm looks better. He wants to wait for tomorrow to be discharged. No more chest pain. He has good pulses good pulse oximetry arm soft
[2017-03-12] MEDS: TERAZOSIN 5 MG CAPSULE PO SCH (20:27)
[2017-03-12] MEDS: ROSUVASTATIN 20 MG TABLET PO SCH (20:28)
[2017-03-13 05:19] LABS: Basophils % 0.5 % (0.0-0.8); Eosinophils # 0.2 10*3/uL (0.0-0.87); Eosinophils % 2.8 % (0.00-10.9); Hematocrit 37.1 VOL% (42.0-52.0); Hemoglobin 12.6 GM/DL (14.0-18.0); Immature Granulocytes % 1.9 %; Immature Granulocytes Absolute 0.15 #; Lymphocytes % 25.9 % (21.2-54.2); Mean Corpuscular Hemoglobin 29 PG (27-34); Mean Corpuscular Volume 86.5 FL (87-102); Mean Platelet Volume 9.1 FL (9.6-12.0); Monocytes # 0.9 10*3/uL (0.11-0.8); Monocytes % 11.6 % (1.7-12.7); Neutrophils # 4.5 10*3/uL (1.4-7.4); Neutrophils % 57.3 % (38.7-73.9); Platelet Count 198 T/CUMM (130-400); Red Blood Count 4.29 MC/CUMM (3.8-5.5); Red Cell Distribution Width 13.7 % (9.3-17.3); White Blood Count 7.8 T/CUMM (4-12)
[2017-03-13 05:42] LABS: Magnesium 2.2 MG/DL (1.8-2.4); Potassium 4.1 MMOL/L (3.5-5.1)
[2017-03-13 07:22] VITALS: BP 137/67
--- NOTE | 2017-03-13 08:09 | Discharge Summary ---
Hospital Course - Hospital Course Hospital Course: [employer]: DR. CONNOLLY Mr. Guevara is a 76 year old male with a history of multivessel CAD , status post inferior STEMI 2 months ago, status post RCA/PL PCI. He also has a history of hypertension, hyperlipidemia. He presented to the hospital with complaints of chest pain, suspicious for ACS/UA. On initial presentation, he described pain of sudden onset left-sided sharp chest pain without radiation, started at rest and was persistent. It resolved with nitroglycerin in the emergency room. This pain was not similar to his pain before the MT, more similar to one he experienced after it. He was also noted to have inferior EKG changes. He had 3 sets of negative cardiac biomarkers. His pain did respond to nitroglycerin. His medical therapy was escalated and he was started on Imdur. It was felt he needed reevaluation of his coronary anatomy with left heart cath and possible PCI given his recent stent. On 03/12/17, he underwent left heart catheterization via right radial approach by Dr. Stewart which revealed several areas of significant stenosis in very small vessels or very distal locations with no significant change since the previous catheterization. The site of the previous interventions are widely patent. It was elected to continue medical management. He had some mild post cath right arm pain, tightness, and edema which improved throughout the afternoon. He was observed overnight and feels well today. His right radial cath site is without bleeding, hematoma, edema, ecchymosis. Right radial pulse is bounding. He has mild tenderness in his right arm. He has been instructed to take Ibuprofen 200mg PO TID x 3 days, then PRN. His vital signs and labwork have remained stable. He is in a normal sinus rhythm. At this time, he has met criteria for discharge and is anxious to go home. He will follow up with Dr. Connolly in 1 week with CBC, BMP w/ Mg, and EKG. Mr. Guevara' home medications will be continued as follows: Amlodipine 5mg PO Daily Ticagrelor 90 mg PO BID Terazosin 5mg PO QHS Crestor 20mg PO QHS (dose increased) Pletal 50mg PO BID Carvedilol 6.25mg PO BID Aspirin EC tab 1 tab PO QAM Nitroglycerin SL 0.4mg SL Q5min PRN CP (patient already has a bottle of NTG at home) NEW: Imdur 30mg PO Daily Ibuprofen 200mg PO TID x 3 days, then PRN - Time spent with patient Time with patient DS: Less than 30 minutes Diagnosis - Discharge Diagnosis (1) Unstable angina Status: Resolved (2) CAD (coronary artery disease) Status: Chronic (3) Hyperlipidemia Status: Chronic (4) Hypertension Status: Chronic Specialty Discharge - Follow Up or Referrals Follow up with: Blu Connolly MD [Physician] - 1 Week (Please cancel patient's appointment for 03/28/17 and reschedule for 1 week following discharge. He will need CBC, BMP w/ Mg, and EKG at follow up appointment. He may have blood work drawn the day of his appointment. ) Discharge Plan - Discharge Data Disposition: Disch To Home/Self Care Condition at Discharge: Stable Discharge Diet: heart healthy Activity: resume usual activities as tolerated, other (Post radial cath expectations. ) Hygiene: no restrictions (Post radial cath expectations. ) Weight Bearing at Discharge: full weight bearing Driving: not for (2 days post cath.) Contact your physician if you experience:: fever over 101, Difficulty voiding, Redness or swelling, Nausea/Vomiting, Shortness of breath, Bleeding, pain uncontrolled by pain medications - Discharge Medications New Ibuprofen Tab [Motrin Tab] 200 mg PO TID #30 tablet Isosorbide Mononitrate [Imdur] 30 mg PO DAILY #30 tablet Nitroglycerin Sl Tab [Nitrostat] 0.4 mg SL Q5M PRN tablet PRN Reason: Chest Pain Continue Terazosin [Hytrin] 5 mg PO BEDTIME Aspirin EC Tab 1 tablet PO QAM Cilostazol [Pletal] 50 mg PO BID #60 tablet Ticagrelor [Brilinta] 90 mg PO BID #60 tablet amLODIPine [Norvasc] 5 mg PO DAILY Changed Carvedilol [Coreg] 6.25 mg PO BID #0 Rosuvastatin [Crestor] 20 mg PO BEDTIME #0 - Follow Up or Referral - Forms/Instructions Instructions: Angina (DC), Coronary Artery Disease (DC), Left Heart Catheterization (DC) Exam - Constitutional Vitals: Period Temp Pulse Resp BP Sys/Juarez Pulse Ox Last 24 Hr 97.2 F-99.1 F 64-91 16-20 94-137/57-75 93-98 Exam: General: Present: Appears Well, No Apparent Distress. Pleasant and cooperative. Appears comfortable. HEENT: Present: PERRL, Normocephaly, atraumatic. Mucus Membranes Moist. No jaundice noted. Conjunctiva moist and clear, sclerae anicteric Neck: Present: Supple Neck, Midline Trachea, No Masses, No Bruit, No tenderness Cardiac: Present: Regular Rate and Rhythm, No Murmur Lungs: Present: Clear to auscultation bilaterally, no wheeze, rhonchi, rales. Neuro: Present: Awake, alert, and oriented x3. Moves all extremities well without hemiparesis or paralysis. Grossly Intact. Absent: Resting Tremor, Essential Tremor Abdomen: Present: Soft, Active Bowel Sounds, No Masses, Non-Tender, nondistended. No abdominal bruit or thrill noted. Skin: Present: Clear. Absent: Rash, No skin breakdown. Back: Normal inspection, no vertebral tenderness. Musculoskeletal: Present: No Fluid Collection, No Pain, Normal Range of Motion Extremities: Present: Normal Gait, No Clubbing, No Cyanosis, Upper Extr. Pulses 2+, Lower Extr. Pulses 2+, No edema. Capillary refill less than 3 seconds. Right radial cath site without bleeding, hematoma, edema, or ecchymosis. Right radial pulse bounding. Discharge Results Procedures and tests throughout hospitalization: Pending Orders 03/12/17 05:00 CL heart Routine Left heart catheterization 03/12/17: CORONARIES: The left main coronary artery is a moderate-sized vessel which bifurcates into the left anterior descending left circumflex coronary arteries. The left main coronary artery is angiographically free of significant obstructive disease. There is actually also a trivial ramus which is less than 1 mm in diameter. The left circumflex coronary artery is a moderate-sized vessel which gives off a moderate-sized bifurcating first obtuse marginal and a moderate-sized branching posterolateral. There are mild luminal irregularities in the circumflex system. The middle branch of the posterior lateral appears to have significant disease but this is very distal and the vessel is quite small at this location so I think I would manage this medically. The left anterior descending is a moderate-sized vessel which gives off a moderate first diagonal branch and a small second diagonal branch. The second diagonal branch is subtotal proximally with slow distal filling. This is unchanged from the previous catheterization. This vessel appears to be approximately 1-1.5 mm in diameter. The left anterior descending coronary artery has diffuse mild luminal irregularities, and has an area of stenosis in the distal vessel near the apex that appears to be approximately 80% stenosed. The right coronary artery is a moderate-sized vessel which gives off the posterior descending artery and a posterolateral system. The previously placed stent in the mid right coronary artery is widely patent. The area of balloon angioplasty in the posterior descending artery also appears to be widely patent. There are mild luminal irregularities in the vessel but no focal high- grade disease. LEFT VENTRICULOGRAPHY: Left ventriculogram shows left ventricular ejection fraction of approximately 65% with normal regional wall motion. IMPRESSION: 1. The previously placed stent and area of balloon angioplasty in the right coronary artery are both widely patent. 2. The previously seen disease in the circumflex, diagonal, and distal left anterior descending coronary artery all remain stable. These vessels are generally very small and/or distal. At this time I think I would continue medical management. 3. Left ventricular systolic function is normal as described above. 4. Mildly elevated left ventricular end-diastolic pressure of approximately 20 mmHg. PLAN: The patient has several areas of significant stenosis and very small vessels or very distal locations. These areas have not changed significantly since the previous catheterization. The site of the previous interventions are widely patent. The patient has preserved left ventricular systolic function. I think at this time I would continue medical management. If medical management fails, intervention in 1 of these small/distal branches could be considered in the future. Labs on day of discharge: Labs from last 24 hours 03/13/17 03/13/17 04:44 04:44 WBC 7.8 RBC 4.29 Hgb 12.6 L Hct 37.1 L MCV 86.5 L MCH 29 MCHC 34.0 RDW 13.7 Plt Count 198 MPV 9.1 L Neut % (Auto) 57.3 Lymph % (Auto) 25.9 [place] % (Auto) 11.6 Eos % (Auto) 2.8 Baso % (Auto) 0.5 Neut # (Auto) 4.5 Lymph # (Auto) 2.0 [place] # (Auto) 0.9 H Eos # (Auto) 0.2 Baso # (Auto) 0.0 Immature Gran % 1.9 Nucleated RBC % 0.0 Immature Gran # 0.15 Nucleated RBCs # 0.00 Sodium 136 Potassium 4.1 Chloride 104 Carbon Dioxide 25 Anion Gap 11.1 BUN 13 Creatinine 1.10 GFR Calculation 69 BUN/Creatinine Ratio 11.00 Glucose 87 Calculated Osmolality 270.0 L Calcium 8.0 L Magnesium 2.2 DS: Provider Date of admission: 03/10/17 17:35 Primary care physician: Boubacar Mccormack MD Attending physician on admission: Dougie Singh MD Discharging clinician: JAMES Seo Expected date of discharge: 03/13/17
[2017-03-13] MEDS ORDERED: IBUPROFEN 200 MG TABLET PO SCH (09:00)
[2017-03-13] MEDS: ASPIRIN EC 81 MG TABLET PO SCH (09:55)
[2017-03-13] MEDS: amLODIPine 5 MG TABLET PO SCH (09:55)
[2017-03-13] MEDS: CILOSTAZOL 50 MG TABLET PO SCH (09:55)
[2017-03-13] MEDS: CARVEDILOL 6.25 MG TABLET PO SCH (09:55)
[2017-03-13] MEDS: ISOSORBIDE MONONITRATE 30 MG TABLET PO SCH (09:56)
[2017-03-13] MEDS: PANTOPRAZOLE 40 MG TABLET PO SCH (09:56)
[2017-03-13] MEDS: TICAGRELOR 90 MG TABLET PO SCH (09:56)
== END 2017-03-13 11:00 | disposition home or self-care (01) | DRG 287 ==
LOC: N.ED 15:53 → N.EDINP 17:35 → N.TELEN 18:40
PROVIDERS: ADMIT Internal Medicine Clinical Cardiac Electrophysiology; ATTEND Internal Medicine Clinical Cardiac Electrophysiology
PROC: CLCCHCL (ICD-10-PCS; 2017-03-12 09:45)

== ENCOUNTER 2017-11-20 15:07 | Observation (INO) ==
[2017-11-20 15:50] LABS: Basophils % 0.6 % (0.0-0.8); Eosinophils # 0.1 10*3/uL (0.0-0.87); Hematocrit 40.9 VOL% (42.0-52.0); Hemoglobin 14.2 GM/DL (14.0-18.0); Immature Granulocytes % 1.9 %; Immature Granulocytes Absolute 0.09 #; Lymphocytes # 1.9 10*3/uL (1.4-4.0); Lymphocytes % 39.9 % (21.2-54.2); Mean Corpuscular HGB Conc 34.7 GM/DL (32-36); Mean Corpuscular Hemoglobin 30 PG (27-34); Mean Corpuscular Volume 87.2 FL (87-102); Mean Platelet Volume 9.8 FL (9.6-12.0); Monocytes # 0.7 10*3/uL (0.11-0.8); Monocytes % 14.3 % (1.7-12.7); Neutrophils # 1.9 10*3/uL (1.4-7.4); Neutrophils % 40.3 % (38.7-73.9); Platelet Count 155 T/CUMM (130-400); Red Blood Count 4.69 MC/CUMM (3.8-5.5); Red Cell Distribution Width 14.2 % (9.3-17.3); White Blood Count 4.7 T/CUMM (4-12)
[2017-11-20 15:55] LABS: PT Patient Result 10.5 SECS
[2017-11-20 16:17] LABS: Albumin 3.7 G/DL (3.4-5.0); Bilirubin,Total 1.1 MG/DL (0.2-1.0); Calcium 8.4 MG/DL (8.5-10.1); Osmolality,Calculated 277.4 MOS/KG (273-304); Potassium 3.8 MMOL/L (3.5-5.1); Total Protein 6.7 G/DL (6.4-8.3)
[2017-11-20] MEDS ORDERED: MORPHINE 2 MG/1 ML SYRINGE IV STA (16:36)
[2017-11-20] MEDS ORDERED: ENOXAPARIN 80 MG/0.8 ML SYRINGE SUBCUT STA (16:36)
[2017-11-20] MEDS ORDERED: NITROGLYCERIN 2% OINT 1 INCH/GM PACK TOP STA (16:36)
[2017-11-20] MEDS ORDERED: ONDANSETRON 4 MG/2 ML VIAL IV STA (16:36)
[2017-11-20] MEDS ORDERED: ASPIRIN 325 MG TABLET PO STA (16:36)
[2017-11-20] MEDS ORDERED: NITROGLYCERIN 2% OINT 1 INCH/GM PACK TOP ONE (16:50)
[2017-11-20] MEDS ORDERED: ONDANSETRON 4 MG/2 ML VIAL ONE (16:50)
[2017-11-20] MEDS ORDERED: MORPHINE 2 MG/1 ML SYRINGE ONE (16:50)
[2017-11-20] MEDS ORDERED: ENOXAPARIN 80 MG/0.8 ML SYRINGE SUBCUT ONE (16:50)
[2017-11-20] MEDS ORDERED: ASPIRIN 325 MG TABLET ONE (16:51)
[2017-11-20] MEDS ORDERED: ONDANSETRON 4 MG/2 ML VIAL IV PRN (17:54)
[2017-11-20] MEDS ORDERED: ZALEPLON 5 MG CAPSULE PO PRN (17:54)
[2017-11-20] MEDS ORDERED: ACETAMINOPHEN 325 MG TABLET PO PRN (17:54)
[2017-11-20] MEDS ORDERED: NITROGLYCERIN SL 0.4 MG TABLET SL PRN (17:56)
[2017-11-20] MEDS ORDERED: ROSUVASTATIN 20 MG TABLET PO SCH (21:00)
[2017-11-20] MEDS ORDERED: TERAZOSIN 5 MG CAPSULE PO SCH (21:00)
[2017-11-20] MEDS: CARVEDILOL 3.125 MG TABLET PO SCH (21:28)
[2017-11-20] MEDS: TICAGRELOR 90 MG TABLET PO SCH (21:28)
[2017-11-20] MEDS: SODIUM CHLORIDE 0.45% 1,000 ML IV SCH (21:33)
[2017-11-21 01:47] LABS: Basophils % 0.3 % (0.0-0.8); Eosinophils # 0.1 10*3/uL (0.0-0.87); Eosinophils % 3.7 % (0.00-10.9); Hematocrit 35.7 VOL% (42.0-52.0); Hemoglobin 12.2 GM/DL (14.0-18.0); Immature Granulocytes % 1.8 %; Immature Granulocytes Absolute 0.07 #; Lymphocytes # 1.6 10*3/uL (1.4-4.0); Lymphocytes % 42.8 % (21.2-54.2); Mean Corpuscular HGB Conc 34.2 GM/DL (32-36); Mean Corpuscular Hemoglobin 30 PG (27-34); Mean Corpuscular Volume 87.3 FL (87-102); Monocytes # 0.6 10*3/uL (0.11-0.8); Monocytes % 14.4 % (1.7-12.7); Neutrophils # 1.4 10*3/uL (1.4-7.4); Platelet Count 150 T/CUMM (130-400); Red Blood Count 4.09 MC/CUMM (3.8-5.5); Red Cell Distribution Width 14.2 % (9.3-17.3); White Blood Count 3.8 T/CUMM (4-12)
[2017-11-21 02:10] LABS: Bilirubin,Total 1.1 MG/DL (0.2-1.0); Calcium 8.1 MG/DL (8.5-10.1); Osmolality,Calculated 281.3 MOS/KG (273-304); Total Protein 5.4 G/DL (6.4-8.3)
[2017-11-21 03:04] LABS: Band Neutrophils 3 % (0-10); Eosinophils 7 % (0-10); Lymphocytes 43 % (20-55); Myelocytes 2 %; Segmented Neutrophils 36 % (50-85)
[2017-11-21 03:05] LABS: Platelet Estimate Normal; Total Cells Counted 100
[2017-11-21] MEDS ORDERED: DIAZEPAM 5 MG TABLET PO ONE (06:00)
[2017-11-21] MEDS ORDERED: diphenhydrAMINE CAP 25 MG CAPSULE PO ONE (06:00)
[2017-11-21] MEDS ORDERED: amLODIPine 5 MG TABLET PO SCH (09:00)
[2017-11-21] MEDS ORDERED: PANTOPRAZOLE 40 MG TABLET PO SCH (09:00)
[2017-11-21] MEDS ORDERED: ASPIRIN EC 81 MG TABLET PO SCH (09:00)
[2017-11-21] MEDS: TICAGRELOR 90 MG TABLET PO SCH (09:34)
[2017-11-21] MEDS: CARVEDILOL 3.125 MG TABLET PO SCH (09:34)
[2017-11-21] MEDS: SODIUM CHLORIDE 0.45% 1,000 ML IV SCH (09:35)
[2017-11-21] MEDS ORDERED: HEPARIN/NACL 0.9% 2 UNITS/ML 0 ML IV ONE (10:46)
[2017-11-21] MEDS ORDERED: HEPARIN/NACL 0.9% 2 UNITS/ML 2,000 ML IV ONE (13:39)
[2017-11-21] MEDS ORDERED: LIDOCAINE 1% 20 ML VIAL ONE (13:39)
[2017-11-21] MEDS ORDERED: NITROGLYCERIN DRIP 50 MG/250 ML BOTTLE IV ONE (13:58)
[2017-11-21] MEDS ORDERED: VERAPAMIL 5 MG/2 ML VIAL ONE (13:59)
[2017-11-21] MEDS ORDERED: MIDAZOLAM 2 MG/2 ML VIAL ONE (14:02)
[2017-11-21] MEDS ORDERED: HYDROmorphone 2 MG/1 ML VIAL ONE (14:03)
[2017-11-21] MEDS ORDERED: ENOXAPARIN 30 MG/0.3 ML SYRINGE ONE (14:10)
[2017-11-21 16:05] VITALS: BP 115/66
[2017-11-22] MEDS ORDERED: ISOSORBIDE MONONITRATE 30 MG TABLET PO SCH (09:00)
== END 2017-11-21 18:00 | disposition home or self-care (01) ==
LOC: N.ED 15:07 → N.EDINP 15:07 → N.TELES 18:58
PROVIDERS: ADMIT Internal Medicine Cardiovascular Disease; ATTEND Internal Medicine Cardiovascular Disease
PROC: CLCCHCL (ICD-10-PCS; 2017-11-21 13:15)

== ENCOUNTER 2021-03-10 13:05 | Observation (INO) ==
[2021-03-10] MEDS ORDERED: NITROGLYCERIN SL 0.4 MG TABLET SL PRN ×2 (14:35→16:00)
[2021-03-10] MEDS ORDERED: NITROGLYCERIN 2% OINT 1 INCH/GM PACK TOP ONE (14:35)
[2021-03-10] MEDS ORDERED: ASPIRIN 325 MG TABLET ONE (14:38)
[2021-03-10 14:47] LABS: Basophils % 0.5 % (0.0-0.8); Eosinophils # 0.1 10*3/uL (0.0-0.87); Hematocrit 40.8 VOL% (42.0-52.0); Hemoglobin 13.5 GM/DL (14.0-18.0); Immature Granulocytes % 2.6 %; Immature Granulocytes Absolute 0.16 #; Lymphocytes # 2.2 10*3/uL (1.4-4.0); Mean Corpuscular HGB Conc 33.1 GM/DL (32-36); Mean Platelet Volume 10.2 FL (9.6-12.0); Monocytes % 22.2 % (1.7-12.7); Neutrophils % 38.7 % (38.7-73.9); Platelet Count 103 T/CUMM (130-400); Red Blood Count 4.69 MC/CUMM (3.8-5.5); Red Cell Distribution Width 14.5 % (9.3-17.3); White Blood Count 6.3 T/CUMM (4-12)
[2021-03-10 14:54] LABS: PT Patient Result 11.4 SECS (10.5-12.0)
[2021-03-10] MEDS ORDERED: ASPIRIN 325 MG TABLET PO STA (15:11)
[2021-03-10] MEDS ORDERED: GLUCAGON 1 MG VIAL IM PRN (16:00)
[2021-03-10] MEDS ORDERED: ONDANSETRON 4 MG/2 ML VIAL IV PRN (16:00)
[2021-03-10] MEDS ORDERED: ACETAMINOPHEN 325 MG TABLET PO PRN (16:00)
[2021-03-10] MEDS ORDERED: MORPHINE 4 MG/1 ML VIAL IV PRN (16:00)
[2021-03-10] MEDS ORDERED: DEXTROSE 50% 25 GM/50 ML VIAL IV PRN (16:00)
[2021-03-10] MEDS ORDERED: BISACODYL 5 MG TABLET PO PRN (16:00)
[2021-03-10] MEDS ORDERED: ALPRAZolam 0.5 MG TABLET PO PRN (16:05)
[2021-03-10] MEDS: ENOXAPARIN 30 MG/0.3 ML SYRINGE SUBCUT SCH (16:35)
[2021-03-10 16:48] LABS: Albumin 3.9 G/DL (3.4-5.0); Bilirubin,Total 0.4 MG/DL (0.2-1.0); Calcium 8.9 MG/DL (8.5-10.1); Osmolality,Calculated 271.1 MOS/KG (273-304); Total Protein 7.2 G/DL (6.4-8.2)
[2021-03-10] MEDS: FAMOTIDINE 20 MG TABLET PO SCH (20:48)
[2021-03-10] MEDS: ROSUVASTATIN 20 MG TABLET PO SCH (20:48)
[2021-03-10] MEDS: carvediloL 3.125 MG TABLET PO SCH (20:48)
[2021-03-11] MEDS ORDERED: ASPIRIN EC 325 MG TABLET PO SCH (09:00)
[2021-03-11] MEDS: carvediloL 3.125 MG TABLET PO SCH ×2 (09:01→20:48)
[2021-03-11] MEDS: CLOPIDOGREL 75 MG TABLET PO SCH (09:01)
[2021-03-11] MEDS: FAMOTIDINE 20 MG TABLET PO SCH ×2 (09:02→20:48)
[2021-03-11] MEDS: IMIPRAMINE 25 MG TABLET PO SCH (09:02)
[2021-03-11] MEDS: PANTOPRAZOLE 40 MG TABLET PO SCH (09:02)
[2021-03-11] MEDS: amLODIPine 5 MG TABLET PO SCH (09:02)
[2021-03-11] MEDS ORDERED: POTASSIUM CHLORIDE RIDER 10 MEQ/100 ML PREMIX IV PRN (10:48)
[2021-03-11] MEDS ORDERED: MAGNESIUM SULF RIDER 2 GM/50 ML PREMIX IV PRN (10:48)
[2021-03-11] MEDS: ENOXAPARIN 30 MG/0.3 ML SYRINGE SUBCUT SCH (17:06)
[2021-03-11] MEDS: ROSUVASTATIN 20 MG TABLET PO SCH (20:48)
[2021-03-11] MEDS: SODIUM CHLORIDE 0.9% 1,000 ML IV SCH (22:09)
[2021-03-12 05:22] LABS: Basophils % 0.4 % (0.0-0.8); Eosinophils # 0.1 10*3/uL (0.0-0.87); Hematocrit 41.1 VOL% (42.0-52.0); Hemoglobin 13.6 GM/DL (14.0-18.0); Immature Granulocytes % 2.4 %; Immature Granulocytes Absolute 0.16 #; Lymphocytes # 2.3 10*3/uL (1.4-4.0); Lymphocytes % 33.7 % (21.2-54.2); Mean Corpuscular HGB Conc 33.1 GM/DL (32-36); Mean Corpuscular Volume 87.6 FL (87-102); Mean Platelet Volume 10.2 FL (9.6-12.0); Monocytes % 23.1 % (1.7-12.7); Neutrophils % 39.4 % (38.7-73.9); Red Blood Count 4.69 MC/CUMM (3.8-5.5); Red Cell Distribution Width 14.4 % (9.3-17.3); White Blood Count 6.8 T/CUMM (4-12)
[2021-03-12 05:26] LABS: Platelet Count 98 T/CUMM (130-400)
[2021-03-12 05:37] LABS: Calcium 8.8 MG/DL (8.5-10.1); Osmolality,Calculated 274.7 MOS/KG (273-304); Potassium 4.5 MMOL/L (3.5-5.1)
[2021-03-12 05:42] LABS: Lymphocytes 34 % (20-55); Platelet Estimate Decreased; Segmented Neutrophils 45 % (50-85); Total Cells Counted 100
[2021-03-12 05:43] LABS: Microcytosis Slight
[2021-03-12] MEDS ORDERED: DIAZEPAM 5 MG TABLET PO ONE (06:00)
[2021-03-12] MEDS ORDERED: diphenhydrAMINE CAP 25 MG CAPSULE PO ONE (06:00)
[2021-03-12] MEDS ORDERED: HEPARIN/NACL 0.9% 2 UNITS/ML 2,000 UNIT/1,000 ML BAG IV ONE (09:09)
[2021-03-12] MEDS ORDERED: LIDOCAINE 1% 20 ML VIAL ONE (09:09)
[2021-03-12] MEDS: amLODIPine 5 MG TABLET PO SCH (09:15)
[2021-03-12] MEDS: carvediloL 3.125 MG TABLET PO SCH ×2 (09:15→20:29)
[2021-03-12] MEDS: CLOPIDOGREL 75 MG TABLET PO SCH (09:16)
[2021-03-12] MEDS: ASPIRIN EC 81 MG TABLET PO SCH (09:16)
[2021-03-12] MEDS: FAMOTIDINE 20 MG TABLET PO SCH ×2 (09:16→20:29)
[2021-03-12] MEDS: PANTOPRAZOLE 40 MG TABLET PO SCH (09:24)
[2021-03-12] MEDS: IMIPRAMINE 25 MG TABLET PO SCH (09:25)
[2021-03-12] MEDS: SODIUM CHLORIDE 0.9% 1,000 ML IV SCH (09:25)
[2021-03-12] MEDS ORDERED: HYDROmorphone 2 MG/1 ML VIAL ONE (09:36)
[2021-03-12] MEDS ORDERED: MIDAZOLAM 2 MG/2 ML VIAL ONE (09:36)
[2021-03-12] MEDS ORDERED: BIVALIRUDIN 250 MG VIAL IV ONE (09:54)
[2021-03-12] MEDS ORDERED: CLOPIDOGREL 300 MG TABLET ONE (10:44)
[2021-03-12] MEDS ORDERED: SODIUM CHLORIDE 0.9% 1,000 ML IV SCH (11:00)
[2021-03-12] MEDS: ENOXAPARIN 30 MG/0.3 ML SYRINGE SUBCUT SCH (16:27)
[2021-03-12] MEDS: ROSUVASTATIN 20 MG TABLET PO SCH (20:29)
[2021-03-13 06:30] LABS: Basophils % 0.4 % (0.0-0.8); Eosinophils % 0.4 % (0.00-10.9); Hematocrit 39.7 VOL% (42.0-52.0); Hemoglobin 12.9 GM/DL (14.0-18.0); Immature Granulocytes % 1.7 %; Immature Granulocytes Absolute 0.13 #; Lymphocytes # 1.9 10*3/uL (1.4-4.0); Mean Corpuscular HGB Conc 32.5 GM/DL (32-36); Mean Corpuscular Volume 88.4 FL (87-102); Mean Platelet Volume 9.8 FL (9.6-12.0); Monocytes % 25.1 % (1.7-12.7); Neutrophils % 48.4 % (38.7-73.9); Platelet Count 107 T/CUMM (130-400); Red Blood Count 4.49 MC/CUMM (3.8-5.5); Red Cell Distribution Width 14.2 % (9.3-17.3); White Blood Count 7.7 T/CUMM (4-12)
[2021-03-13 06:40] LABS: Calcium 8.6 MG/DL (8.5-10.1); Osmolality,Calculated 268.1 MOS/KG (273-304); Potassium 4.1 MMOL/L (3.5-5.1)
[2021-03-13 06:44] LABS: CKMB % 6.4 %
[2021-03-13 06:46] LABS: High Sensitive Troponin I* 692.2 ng/L (0-78)
[2021-03-13 08:30] VITALS: BP 122/76
[2021-03-13] MEDS: ASPIRIN EC 81 MG TABLET PO SCH (08:54)
[2021-03-13] MEDS: amLODIPine 5 MG TABLET PO SCH (08:55)
[2021-03-13] MEDS: carvediloL 3.125 MG TABLET PO SCH (08:55)
[2021-03-13] MEDS: FAMOTIDINE 20 MG TABLET PO SCH (08:55)
[2021-03-13] MEDS: CLOPIDOGREL 75 MG TABLET PO SCH (08:55)
[2021-03-13] MEDS: PANTOPRAZOLE 40 MG TABLET PO SCH (08:55)
[2021-03-13] MEDS: IMIPRAMINE 25 MG TABLET PO SCH (08:56)
== END 2021-03-13 11:28 | disposition home or self-care (01) ==
LOC: N.ED 13:05 → N.EDINP 13:05 → SUATTDRO 16:00 → N.TELES 16:23
PROVIDERS: ADMIT Internal Medicine Geriatric Medicine; ATTEND Internal Medicine
PROC: CLCCHCL (ICD-10-PCS; 2021-03-12 10:15)